=== PATIENT | female | born 1980 | race African-American/Black ===

== ENCOUNTER 2020-09-24 05:29 | Day surgery (SDC) | payer OTHER ==
[2020-09-23 13:13] VITALS: BMI 25.5
[2020-09-24] MEDS ORDERED: BUPIVACAINE HCL/PF 0.25% (2.5MG/ML) 10 ML VIAL ONE (14:06)
[2020-09-24] MEDS ORDERED: fentaNYL CITRATE 250 MCG/5 ML VIAL ONE (14:41)
[2020-09-24] MEDS ORDERED: ROCURONIUM BROMIDE 50 MG/5 ML SYRINGE ONE (14:42)
[2020-09-24] MEDS ORDERED: PROPOFOL 20 ML ONE ×2 (14:42)
[2020-09-24] MEDS ORDERED: MIDAZOLAM HCL 2 MG/2 ML SINGLE DOSE VIAL ONE (14:42)
[2020-09-24] MEDS ORDERED: NEOSTIGMINE METHYLSULFATE 0.5 MG/ML - 10 ML MDV ONE (14:50)
[2020-09-24] MEDS ORDERED: ceFAZolin SODIUM 1 GM VIAL IVPB ONE (15:00)
[2020-09-24] MEDS ORDERED: EPHEDRINE SULFATE/0.9% NACL/PF 50 MG/10 ML SYRINGE NR ONE (15:19)
[2020-09-24] MEDS ORDERED: IBUPROFEN 800 MG/8 ML IJ IVPB PRN (15:45)
[2020-09-24] MEDS ORDERED: IBUPROFEN 600 MG TABLET (FP) PO PRN (15:45)
[2020-09-24] MEDS ORDERED: ACETAMINOPHEN 325 MG TABLET (FP) PO PRN (15:45)
[2020-09-24] MEDS ORDERED: LACTATED RINGERS SOLUTION 1,000 ML IV SCH (15:45)
[2020-09-24] MEDS ORDERED: oxyCODONE HCL 5 MG TABLET PO PRN (16:39)
[2020-09-24] MEDS ORDERED: ONDANSETRON 4 MG/2 ML VIAL IVPUSH PRN (16:39)
[2020-09-24] MEDS ORDERED: PROMETHAZINE HCL 25 MG/1 ML VIAL IVPUSH PRN (16:39)
[2020-09-24 18:08] VITALS: BP 117/82; PULSE 60; TEMP 97.4
== END 2020-09-24 18:20 | disposition home or self-care (01) ==
LOC: JASU-SURG 05:29
PROVIDERS: ATTEND Obstetrics & Gynecology
PROC: 0U574ZZ Destruction of Bilateral Fallopian Tubes, Percutaneous Endoscopic Approach (ICD-10-PCS; principal; 2020-09-24 14:30)
DX: Z30.2 Encounter for sterilization (principal)
CPT/HCPCS: 36415; 84703; 86850; 86900; 86901; 94760